=== PATIENT | female | born 1945 | race Caucasian/White ===

== ENCOUNTER 2017-09-24 17:27 | Observation (INO) | payer MEDICARE, SELFPAY ==
[2017-09-24] VITALS (10 sets, daily range): BP systolic 159–194; BP diastolic 90–112; PULSE 80–108; RESP 12–18; TEMP 36.1–36.3; O2SAT 93–99; BMI 32.2; BMI 28.7
--- NOTE | 2017-09-24 17:38 | EKG12_ITS ---
Test Reason : CP Blood Pressure : / mmHG Vent. Rate : 100 BPM Atrial Rate : 100 BPM P-R Int : 194 ms QRS Dur : 078 ms QT Int : 338 ms P-R-T Axes : 043 046 029 degrees QTc Int : 436 ms Normal sinus rhythm Nonspecific ST abnormality Abnormal ECG Confirmed by CHARITY SALCIDO MD ([id number]), editor house organ FRANK VALDES ([id number]) on 09/26/2017 2:11:43 PM Referred By: CHHAYA Confirmed By:CHARITY SALCIDO MD
--- NOTE | 2017-09-24 17:40 | RAD_ITS ---
STUDY: X-RAY CHEST REASON FOR EXAM: Female, 72 years old. Chest pain TECHNIQUE: Single AP portable view of the chest. COMPARISON: None. FINDINGS: property assessment monitor leads are present. The lungs are clear and expanded. There is no demonstrated pleural abnormality. Normal size heart. Normal mediastinum and vianney. Normal visualized pulmonary arteries. There are calcified plaques of the aortic arch. Normal visualized thoracic spine. Normal visualized ribs, clavicles, and shoulders. There is no demonstrated abnormality of the visualized soft tissue structures of the upper abdomen. RAD/Chest 1 View (Portable) IMPRESSION: Calcified plaques of the aortic arch. No acute cardiopulmonary disease process is seen. Electronically Signed: Gabriel Alvarado MD at 18:28 EDT , Service support ,
[2017-09-24 18:00] LABS: Absolute Lymphocyte Count 2.98 X10^3/ul (0.83-4.51); Basophil# 0.02 X10^3/uL; Basophil% 0.3 % (0-1); Eosinophil# 0.12 X10^3/uL; Eosinophils% 1.8 % (0-5); Hematocrit 40.5 % (37-47); Hemoglobin 13.1 g/dl (12.0-15.0); Lymphocyte # 2.98 X10^3/ul (4.0); Lymphocyte % 45.8 % (19-41); Mean Corp Hgb Conc 32.3 g/gl (32-36); Mean Corpuscular Hgb 31.1 pg (27.0-32.0); Mean Corpuscular Volume 96.2 fL (81-99); Mean Platelet Vol. 8.9 fl (6.2-12.0); Monocyte% 6.1 % (0-10); Neutrophil # 2.98 X10^3/uL (2.7-7.7); Neutrophil % 45.8 % (47-70); Platelet Count 284 K/mm3 (150-450); RBC Distribution Width CV 12.5 % (11.6-14.6); RBC Distribution Width SD 43.2 fl (35.1-43.9); Red Blood Count 4.21 M/mm3 (4.2-5.4); White Blood Count 6.5 K/mm3 (4.4-11.0)
[2017-09-24] MEDS: Morphine 4 MG/ML Syringe IV (18:01)
[2017-09-24] MEDS: Ondansetron 4 MG/2 ML Vial IV (18:02)
[2017-09-24 18:05] LABS: POSITIVE COUNT NO; POSITIVE DIFFERENTIAL NO; POSITIVE MORPHOLOGY NO
[2017-09-24 18:08] LABS: Anion Gap 11 (5-15); BUN 24 mg/dL (7-18); BUN/Creat Ratio 16.7 RATIO (10-20); Calcium,Total 9.3 mg/dL (8.5-10.1); Chloride 104 mmol/L (98-107); Creatinine, Serum 1.44 mg/dL (0.55-1.02); EST Glomerular Filtration Rate 38 mL/min (>60); Est Glom Filt Rate - Afr Amer 46 mL/min (>60); Estimated Creatinine Clearance 34.03 ml/min; Glucose 129 mg/dL (74-106); Potassium 3.7 mmol/L (3.5-5.1); Sodium Level 140 mmol/L (136-145)
[2017-09-24 18:12] LABS: D-Dimer Quantitative (DVT/PE) 0.47 FEU/ug/m (0.27-0.49)
--- NOTE | 2017-09-24 18:24 | EKG12_ITS ---
Test Reason : REPEAT Blood Pressure : / mmHG Vent. Rate : 075 BPM Atrial Rate : 075 BPM P-R Int : 174 ms QRS Dur : 080 ms QT Int : 376 ms P-R-T Axes : 044 041 039 degrees QTc Int : 419 ms Normal sinus rhythm Normal ECG Confirmed by CHARITY SALCIDO MD ([id number]), proposal editor FRANK VALDES ([id number]) on 09/26/2017 2:35:26 PM Referred By: TEE Confirmed By:CHARITY SALCIDO MD
--- NOTE | 2017-09-24 18:44 | CT_ITS ---
STUDY: CTA CHEST REASON FOR EXAM: Female, 72 years old. Chest pain RADIATION DOSAGE (If Supplied By Facility): CTDIvol = ( 14.83 ) mGy, DLP = ( 599.78 ) mGycm TECHNIQUE: The examination was performed with the intravenous administration of 100ML ml of Isovue 370 contrast material. Post-processing of the angiographic images was performed, with multiplanar reformation and 3D reconstruction. Individualized dose optimization techniques were used for this CT. COMPARISON: None. FINDINGS: Normal enhancement of the main pulmonary artery and right and left pulmonary arteries. Normal enhancement of the bilateral peripheral pulmonary arteries. There is no demonstrated pulmonary embolism. Normal thoracic aorta and visualized great vessels. There is no demonstrated aortic dissection. Normal heart and pericardium. Normal mediastinum. Normal hilar regions. Normal visualized trachea and bronchi. There is a 7 mm pleural-based nodule of the superior segment of the right lower lobe, image 44 series 2. Normal pleura. Normal chest wall structures. There are degenerative changes of thoracic spine. There is a small calcified gallstone in the gallbladder neck. CT/CTA Chest W/WO Contrast IMPRESSION: Normal CTA chest examination, without a demonstrated pulmonary embolism or arterial dissection. 7 mm pleural-based nodule of the superior segment of the right lower lobe. Small calcified gallstone in the gallbladder neck. Electronically Signed: Gabriel Alvarado MD at 19:49 EDT , Service support ,
[2017-09-24] MEDS: HYDROmorphone 1 MG/ML Syringe 0.5 MG IV ×4 (18:54→21:11)
[2017-09-24 20:23] LABS: AST(SGOT) 30 U/L (15-37); Alanine Aminotransfer ALT/SGPT 34 U/L (13-56); Albumin, Serum 4.2 g/dL (3.2-5.0); Alkaline Phosphatase 147 U/L (45-117); Bilirubin, Direct 0.11 mg/dL (0.00-0.30); Globulin 4.7 g/dL (2.2-4.2); Lipase 154 U/L (73-393); Protein, Total 8.9 g/dL (6.4-8.2)
--- NOTE | 2017-09-24 20:57 | ED.VISSUMM ---
- ER Visit Summary Date of Service: 09/24/17 Chief Complaint: Acute midsternal severe chest pain History of Present Illness: The patient is a 72 F who presents with acute midsternal chest pain that started 30-60 minutes prior to presentation. She denies history of coronary disease. She denies history of PE or DVT. She did travel from [facility] and is made several trips in the last 24 hours to visit family members and ill family members at multiple different hospitals. When this occurred she was celebrating her grandsons achievement of [employer]. She is a non-smoker. Eyes any intolerance to greasy or fried foods. She denies headache. She denies visual, ocular or auditory symptoms. Denies jaw pain or neck pain. She denies shortness of breath, difficulty breathing, diaphoresis or nausea. She denies any leg pain, swelling or discoloration. She denies any hematemesis, melena hematochezia. She does have history of mild renal insufficiency and hypertension. There is also history of hypothyroidism based on medication. Physical Examination: Vital signs were remarkable for a blood pressure of 193/109. She appears uncomfortable holding her in the middle of her chest. Head is atraumatic normocephalic. Pupils are equal round reactive. Extraocular muscles are intact. TMs are pearly white with landmarks noted. Nares patent with no drainage. Posterior pharynx without erythema or exudate. Uvula is midline. There is no dysphonia or dysphasia. Trachea is midline. There is no stridor with auscultation of the neck. Heart is regular without murmur, gallop or rub. S1 and S2 are normal. Lungs are clear to auscultation with good movement of air bilaterally. There is no reproducible abdominal pain or chest pain bowel sounds are present normal. There is no palpable stone mass or abdominal bruit. She has a negative Cotton sign. There is no CVA tenderness noted. There is no asymmetry, swelling, discoloration, leg vein distention, palpable cords or tenderness along the distribution of the deep venous system. Patient is alert and oriented ?3. Motor is 5 over 5. Sensory is intact. DTRs are symmetric with no clonus or Babinski sign. Cranial 2 through 12 are intact. Cerebellar testing is normal. Test Results: EKG #1 normal sinus rhythm rate of 84 and normal. Repeat EKG was obtained because of increased pain and is normal. CBC normal. BUN is 24 the creatinine 1.44 and glucose 129. Alk phos is 147. Troponin less than 0.02 d-dimer is at 0.47. However with the abrupt onset of this pain an aortic dissection may have a falsely normal d-dimer. CTA for dissection reveals a 7 mm gallstone in the neck of the gallbladder. Emergency Department Course and Treatment: To evaluate chest pain EKG, chest x-ray and appropriate blood work was obtained to evaluate Harpreet versus pulmonary versus GI etiology. Because of the elevated blood pressure and complaining of pain only in the middle of her chest without food intolerance concerned this may represent aortic dissection. After reviewing results of CTA of the chest hepatic and lipase were ordered. Patient is received 4 mg of morphine and 4 separate doses of Dilaudid and is still in significant discomfort. Dr. Chadwick Tolentino who is on for surgery was contacted and will see patient Treatment Plan: Ultrasound was not ordered since she ate 3-4 hours ago and would result in a suboptimal test. Disposition: Pending evaluation by Dr. Tolentino patient will be admitted either to surgery or medicine service. Dr. Tolentino is seeing patient. He would like her cleared from a medical/cardiac standpoint and an ultrasound in the morning. Impression: Chest pain Cholelithiasis History of hypertension History hypothyroidism This note was generated with [employer] dictation software. It may contain incorrect words, spelling, and punctuation that were not noted in review of the chart prior to signing ED Disposition - Plan for ED Patient: Chief Complaint: Chest Pain Referrals: Care Physician,No Primary [Primary Care Provider] -
--- NOTE | 2017-09-24 21:02 | ED.DCSUM_ITS ---
- ER Visit Summary Date of Service: 09/24/17 Chief Complaint: Acute midsternal severe chest pain History of Present Illness: The patient is a 72 F who presents with acute midsternal chest pain that started 30-60 minutes prior to presentation. She denies history of coronary disease. She denies history of PE or DVT. She did travel from [facility] and is made several trips in the last 24 hours to visit family members and ill family members at multiple different hospitals. When this occurred she was celebrating her grandsons achievement of [employer]. She is a non-smoker. Eyes any intolerance to greasy or fried foods. She denies headache. She denies visual, ocular or auditory symptoms. Denies jaw pain or neck pain. She denies shortness of breath, difficulty breathing, diaphoresis or nausea. She denies any leg pain, swelling or discoloration. She denies any hematemesis, melena hematochezia. She does have history of mild renal insufficiency and hypertension. There is also history of hypothyroidism based on medication. Physical Examination: Vital signs were remarkable for a blood pressure of 193/ 109. She appears uncomfortable holding her in the middle of her chest. Head is atraumatic normocephalic. Pupils are equal round reactive. Extraocular muscles are intact. TMs are pearly white with landmarks noted. Nares patent with no drainage. Posterior pharynx without erythema or exudate. Uvula is midline. There is no dysphonia or dysphasia. Trachea is midline. There is no stridor with auscultation of the neck. Heart is regular without murmur, gallop or rub. S1 and S2 are normal. Lungs are clear to auscultation with good movement of air bilaterally. There is no reproducible abdominal pain or chest pain bowel sounds are present normal. There is no palpable stone mass or abdominal bruit. She has a negative Cotton sign. There is no CVA tenderness noted. There is no asymmetry, swelling, discoloration, leg vein distention, palpable cords or tenderness along the distribution of the deep venous system. Patient is alert and oriented ?3. Motor is 5 over 5. Sensory is intact. DTRs are symmetric with no clonus or Babinski sign. Cranial 2 through 12 are intact. Cerebellar testing is normal. Test Results: EKG #1 normal sinus rhythm rate of 84 and normal. Repeat EKG was obtained because of increased pain and is normal. CBC normal. BUN is 24 the creatinine 1.44 and glucose 129. Alk phos is 147. Troponin less than 0.02 d- dimer is at 0.47. However with the abrupt onset of this pain an aortic dissection may have a falsely normal d-dimer. CTA for dissection reveals a 7 mm gallstone in the neck of the gallbladder. Emergency Department Course and Treatment: To evaluate chest pain EKG, chest x- ray and appropriate blood work was obtained to evaluate Harpreet versus pulmonary versus GI etiology. Because of the elevated blood pressure and complaining of pain only in the middle of her chest without food intolerance concerned this may represent aortic dissection. After reviewing results of CTA of the chest hepatic and lipase were ordered. Patient is received 4 mg of morphine and 4 separate doses of Dilaudid and is still in significant discomfort. Dr. Chadwick Tolentino who is on for surgery was contacted and will see patient Treatment Plan: Ultrasound was not ordered since she ate 3-4 hours ago and would result in a suboptimal test. Disposition: Pending evaluation by Dr. Tolentino patient will be admitted either to surgery or medicine service. Dr. Tolentino is seeing patient. He would like her cleared from a medical/cardiac standpoint and an ultrasound in the morning. Impression: Chest pain Cholelithiasis History of hypertension History hypothyroidism This note was generated with [employer] dictation software. It may contain incorrect words, spelling, and punctuation that were not noted in review of the chart prior to signing ED Disposition - Plan for ED Patient: Chief Complaint: Chest Pain Referrals: Care Physician,No Primary [Primary Care Provider] -
--- NOTE | 2017-09-24 21:42 | PCM.CONS.GEN ---
Problem List (1) Cholelithiasis Status: Acute Qualifiers: Cholelithiasis location: gallbladder Cholecystitis presence: without cholecystitis Biliary obstruction: without biliary obstruction Qualified Code(s): K80.20 - Calculus of gallbladder without cholecystitis without obstruction (2) Chest pain Status: Acute Qualifiers: Chest pain type: unspecified Qualified Code(s): R07.9 - Chest pain, unspecified Reason for Consult Date of Consultation: 09/24/17 History of Present Illness: The patient is a 72 F who presents with acute midsternal chest pain that started 30-60 minutes prior to presentation. She denies history of coronary disease. She denies history of PE or DVT. She did travel from [facility] and is made several trips in the last 24 hours to visit family members and ill family members at multiple different hospitals. When this occurred she was celebrating her grandsons achievement of [employer]. She is a non-smoker. Eyes any intolerance to greasy or fried foods. She denies headache. She denies visual, ocular or auditory symptoms. Denies jaw pain or neck pain. She denies shortness of breath, difficulty breathing, diaphoresis or nausea. She denies any leg pain, swelling or discoloration. She denies any hematemesis, melena hematochezia. She does have history of mild renal insufficiency and hypertension. There is also history of hypothyroidism based on medication. I questioned her extensively about where her pain was located. She is having no abdominal complaints whatsoever. Her pain is midsternal going up into her neck and down into her left arm. She is been given numerous bouts of IV narcotics which really have not touched her pain significantly. She had a CTA of her chest which showed an isolated gallstone. My review of the CAT scan did not show any pericholecystic fluid. There did not appear to be any distention of the gallbladder. There did not appear to be any thickening of the wall on the CAT scan albeit it is difficult to see that on a CAT scan. 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 Denies: Palpitations Respiratory: Denies: Cough, Hemoptysis, Shortness of breath at rest, Shortness of breath upon exertion, Wheezing Gastrointestinal: Denies: Abdominal Pain, Constipation, Diarrhea, Hematemesis, Nausea, Melena, Vomiting Genitourinary: Denies: Dysuria, Frequency, Hematuria, Urgency Musculoskeletal: Reports: Arm Pain - She has pain extending into the neck and going down the left arm. Neurological: Reports: Headaches. Denies: Change in Speech, Confusion, Numbness, Tingling, Seizures Psychiatric: Denies: Anxiety, Depression Endocrine: Denies: Heat/ Cold Intolerance, Polydipsia, Polyuria Hematologic/ Lymphatic: Denies: Adenopathy, Easy Bruising Patient Problems: Active and Suspected Problems Cholelithiasis (Acute) Chest pain (Acute) - Physical Exam General: Alert, Oriented x3 HEENT: Atraumatic, PERRLA, EOMI, Normocephalic Neck: Supple, No JVD Lungs: Clear to auscultation Cardiovascular: Regular rate, Regular Rhythm, No murmurs Abdomen: Bowel Sounds Present, Soft, Non Tender, Non-Distended Extremities: No clubbing, No cyanosis, No edema Psych/Mental Status: Normal Affect, Appropriate Vital Signs Temp Pulse Resp BP Pulse Ox 97.4 F L 85 16 170/106 H 97 09/24/17 17:34 09/24/17 21:35 09/24/17 21:35 09/24/17 21:35 09/24/17 21:35 Oxygen Flow Rate (L/min) 2 Oxygen Delivery Method Room Air Weight: 199 lb 11.821 oz Body Mass Index (BMI) 32.2 Laboratory Tests Past 24 Hrs 09/24/17 09/24/17 09/24/17 17:30 17:30 17:30 WBC 6.5 RBC 4.21 Hgb 13.1 Hct 40.5 MCV 96.2 MCH 31.1 MCHC 32.3 RDW 12.5 RDW Differential 43.2 Plt Count 284 MPV 8.9 Immature Gran % (Auto) 0.200 Neut % (Auto) 45.8 L Lymph % (Auto) 45.8 H Crane % (Auto) 6.1 Eos % (Auto) 1.8 Baso % (Auto) 0.3 Absolute Neuts (auto) 3.0 Absolute Lymphs (auto) 2.98 Total Counted Not Reportable D-Dimer Quant (PE/DVT) 0.47 Sodium 140 Potassium 3.7 Chloride 104 Carbon Dioxide 25.0 Anion Gap 11 BUN 24 H Creatinine 1.44 H Estim Creat Clear Calc 34.03 Est GFR (MDRD) Af Amer 46 L Est GFR (MDRD) Non-Af 38 L BUN/Creatinine Ratio 16.7 Glucose 129 H Calcium 9.3 Total Bilirubin Direct Bilirubin AST ALT Alkaline Phosphatase Troponin I < 0.02 Total Protein Albumin Globulin Lipase 09/24/17 20:02 WBC RBC Hgb Hct MCV MCH MCHC RDW RDW Differential Plt Count MPV Immature Gran % (Auto) Neut % (Auto) Lymph % (Auto) Crane % (Auto) Eos % (Auto) Baso % (Auto) Absolute Neuts (auto) Absolute Lymphs (auto) Total Counted D-Dimer Quant (PE/DVT) Sodium Potassium Chloride Carbon Dioxide Anion Gap BUN Creatinine Estim Creat Clear Calc Est GFR (MDRD) Af Amer Est GFR (MDRD) Non-Af BUN/Creatinine Ratio Glucose Calcium Total Bilirubin 0.40 Direct Bilirubin 0.11 AST 30 ALT 34 Alkaline Phosphatase 147 H Troponin I Total Protein 8.9 H Albumin 4.2 Globulin 4.7 H Lipase 154 Assessment/Plan Active and Suspected Problems Cholelithiasis (Acute) Chest pain (Acute) Although she has cholelithiasis I really do not think her pain is being derived from this. She has absolutely no abdominal pain on palpation and she is not complaining of any abdominal pain. Her liver function tests are within normal limits other than her alkaline phosphatase being elevated. I think it is best that medicine bring her in and rule her out from a cardiac and a chest standpoint and obtain a gallbladder ultrasound in the morning as well as repeating liver function tests then. At the present time I do not have a strong indication to take her to surgery to remove her gallbladder and think that I am going to make this discomfort go away.
--- NOTE | 2017-09-24 21:44 | HP.PCM_ITS ---
History of Present Illness Date of Admission: 09/24/17 Chief Complaint: Chest pain The patient is a 72 year old F with history of hypertension hypothyroidism came to ER with sudden onset of chest pain while having dinner at 5 PM. Patient is visiting her relative in [place] from [place]. She complained of chest pain left-sided intensity /, with radiation to left side of her neck and left upper extremity. She denies associated symptoms of shortness of breath, diaphoresis, palpitation, near syncope or syncope. [] In ED, EKG shows normal sinus rhythm at [address]-T changes. Furthermore she had CT angiogram of chest was negative for PE but showed small calcified gallstone in GB neck. Past Medical History Allergies No Known Allergies Allergy (Verified 09/24/17 17:27) Home Medications: Ambulatory Orders Medication Instructions Recorded Levothyroxine [Synthroid] 75 mcg PO DAILY 09/24/17 Olmesartan Medoxomil [Benicar] 20 mg PO DAILY 09/24/17 Smoking Status: Former smoker - *Family History Paternal History Items: No pertinent history Review of Systems Constitutional: Denies: Chills, Fever, Weight Change HEENT: Denies: Head Aches, Sinus Congestion, Sinus Drainage Cardiovascular: Reports: Chest Pain. Denies: Palpitations Respiratory: Denies: Cough, Shortness of breath at rest, Sputum production Gastrointestinal: Denies: Abdominal Pain, Nausea, Vomiting Genitourinary: Denies: Dysuria Musculoskeletal: Denies: Joint Pain, Joint Tenderness Skin: Denies: Rash, Wounds Neurological: Denies: Numbness, Tingling, Focal weakness Psychiatric: Denies: Anxiety, Depression, Homicidal Ideations, Suicidal Ideations Hematologic/ Lymphatic: Denies: Easy Bruising, Easy Bleeding VTE Information - Inpt Only VTE Present on Admission: No VTE Mechan Device Prophylaxis: SCD's VTE Pharm Prophylaxis ordered?: Yes - Physical Exam General: Alert, Oriented x3, Cooperative HEENT: Atraumatic, PERRLA, EOMI, Normocephalic Neck: Supple, No JVD, Negative Carotid Bruits Lungs: Clear to auscultation, Normal air movement Cardiovascular: Regular rate, Regular Rhythm, Normal S1, Normal S2, No murmurs Abdomen: Bowel Sounds Present, Soft, Non Tender, Non-Distended Extremities: No edema, Capillary Refill Less than 3 Seconds Skin: No rashes, No breakdown Musculoskeletal: No Tenderness to Palpation of Joints or Extremities Neurological: Cranial nerves II-XII grossly intact Psych/Mental Status: Normal Affect, Appropriate Vital Signs Temp Pulse Resp BP Pulse Ox 97.4 F L 85 16 170/106 H 97 09/24/17 17:34 09/24/17 21:35 09/24/17 21:35 09/24/17 21:35 09/24/17 21:35 Oxygen Flow Rate (L/min) 2 Oxygen Delivery Method Room Air Weight: 199 lb 11.821 oz Body Mass Index (BMI) 32.2 Laboratory Tests Past 24 Hrs 09/24/17 09/24/17 09/24/17 17:30 17:30 17:30 WBC 6.5 RBC 4.21 Hgb 13.1 Hct 40.5 MCV 96.2 MCH 31.1 MCHC 32.3 RDW 12.5 RDW Differential 43.2 Plt Count 284 MPV 8.9 Immature Gran % (Auto) 0.200 Neut % (Auto) 45.8 L Lymph % (Auto) 45.8 H Cottle % (Auto) 6.1 Eos % (Auto) 1.8 Baso % (Auto) 0.3 Absolute Neuts (auto) 3.0 Absolute Lymphs (auto) 2.98 Total Counted Not Reportable D-Dimer Quant (PE/DVT) 0.47 Sodium 140 Potassium 3.7 Chloride 104 Carbon Dioxide 25.0 Anion Gap 11 BUN 24 H Creatinine 1.44 H Estim Creat Clear Calc 34.03 Est GFR (MDRD) Af Amer 46 L Est GFR (MDRD) Non-Af 38 L BUN/Creatinine Ratio 16.7 Glucose 129 H Calcium 9.3 Total Bilirubin Direct Bilirubin AST ALT Alkaline Phosphatase Troponin I < 0.02 Total Protein Albumin Globulin Lipase 09/24/17 20:02 WBC RBC Hgb Hct MCV MCH MCHC RDW RDW Differential Plt Count MPV Immature Gran % (Auto) Neut % (Auto) Lymph % (Auto) Cottle % (Auto) Eos % (Auto) Baso % (Auto) Absolute Neuts (auto) Absolute Lymphs (auto) Total Counted D-Dimer Quant (PE/DVT) Sodium Potassium Chloride Carbon Dioxide Anion Gap BUN Creatinine Estim Creat Clear Calc Est GFR (MDRD) Af Amer Est GFR (MDRD) Non-Af BUN/Creatinine Ratio Glucose Calcium Total Bilirubin 0.40 Direct Bilirubin 0.11 AST 30 ALT 34 Alkaline Phosphatase 147 H Troponin I Total Protein 8.9 H Albumin 4.2 Globulin 4.7 H Lipase 154 Assessment/Plan The patient is a 72 year old F with history of hypertension hypothyroidism came to ER with sudden onset of chest pain while having dinner at 5 PM. Patient is visiting her relative in [place] from [place]. She complained of chest pain, persistent, left-sided intensity 9/10, with radiation to left side of her neck and left upper extremity. She denies associated symptoms of shortness of breath, diaphoresis, palpitation, near syncope or syncope. [] In ED, EKG shows normal sinus rhythm at [address]-T changes. Furthermore she had CT angiogram of chest was negative for PE but showed small calcified gallstone in GB neck. 1. Atypical chest pain: Does not seem to be unstable angina: Patient does not have history of AL or coronary artery disease or other cardiac disease except hypertension. She denies history of esophageal disease including GERD/ dysphagia or hiatus hernia. Patient is being admitted in PCU. On ACS protocol with serial cardiac enzymes and if negative treadmill nuclear stress test tomorrow morning. Patient still has chest pain even after 4 doses of Dilaudid 0.5 mg and morphine 4 mg. 2. Hypertension: In the ER blood pressure elevated. She takes Benicar at night. Hydralazine 10 mg IV every 4 hourly as needed systolic blood pressure more than 180 mmHg. Mild increase in creatinine with BUN most rarely prerenal azotemia: Creatinine is 1.44 and BUN 24. Does not have any previous labs to compare. IV fluid normal saline enema per hour 3. Hypothyroidism: TSH and free T4 tomorrow morning. Continue Synthroid. DVT prophylaxis: On heparin 5000 units units subcutaneous twice daily and bilateral SCDs. Laboratory Results 09/24/17 17:30: WBC 6.5, RBC 4.21, Hgb 13.1, Hct 40.5, MCV 96.2, MCH 31.1, MCHC 32.3, RDW 12.5, RDW Differential 43.2, Plt Count 284, MPV 8.9, Immature Gran % ( Auto) 0.200, Neut % (Auto) 45.8 L, Lymph % (Auto) 45.8 H, Cottle % (Auto) 6.1, Eos % (Auto) 1.8, Baso % (Auto) 0.3, Absolute Neuts (auto) 3.0, Absolute Lymphs (auto) 2.98, Total Counted Not Reportable 09/24/17 17:30: D-Dimer Quant (PE/DVT) 0.47 09/24/17 17:30: Sodium 140, Potassium 3.7, Chloride 104, Carbon Dioxide 25.0, Anion Gap 11, BUN 24 H, Creatinine 1.44 H, Estim Creat Clear Calc 34.03, Est GFR (MDRD) Af Amer 46 L, Est GFR (MDRD) Non-Af 38 L, BUN/Creatinine Ratio 16.7, Glucose 129 H, Calcium 9.3, Troponin I < 0.02 09/24/17 20:02: Total Bilirubin 0.40, Direct Bilirubin 0.11, AST 30, ALT 34, Alkaline Phosphatase 147 H, Total Protein 8.9 H, Albumin 4.2, Globulin 4.7 H, Lipase 154 Code Visit OBSV E&M: 79242 Initial observation care L3
[2017-09-24] MEDS: Heparin Injection (Vial) 5,000 UNIT/ML VIAL 5000 UNIT SC (22:54)
[2017-09-24] MEDS: Aspirin 81 MG TAB.CHEW 324 MG PO (22:54)
[2017-09-24] MEDS: oxyCODONE CR 15 MG Tablet PO (22:55)
[2017-09-24] MEDS: Metoprolol Tartrate 25 MG Tablet PO (22:55)
[2017-09-24] MEDS: Atorvastatin Calcium 40 MG Tablet PO (22:55)
[2017-09-24] MEDS: 0.9% Normal Saline 1,000 ML 100 ML IV (22:56)
[2017-09-24 23:05] LABS: Magnesium 1.9 mg/dL (1.6-2.6)
[2017-09-25 01:55] VITALS: BP 138/78; PULSE 76; RESP 14; TEMP 36.3; O2SAT 94
[2017-09-25] MEDS: Morphine 2 MG/ML Syringe IV ×2 (02:02→05:19)
[2017-09-25] MEDS: 0.9% NaCl Peripheral Flush Adult/Peds IV (02:03)
[2017-09-25 03:11] VITALS: PULSE 84
[2017-09-25 05:15] VITALS: BP 140/81; PULSE 80; RESP 14; TEMP 36.6; O2SAT 92
[2017-09-25] MEDS: Losartan Potassium 50 MG Tablet PO (05:18)
[2017-09-25] MEDS: Levothyroxine 75 MCG Tablet PO (05:18)
[2017-09-25] MEDS: Aspirin E.C. 81 MG Tablet PO (05:18)
[2017-09-25 05:47] LABS: Absolute Lymphocyte Count 1.22 X10^3/ul (0.83-4.51); Absolute Neutrophil Count 7.4 X10^3/uL (2.0-7.7); Basophil# 0.01 X10^3/uL; Basophil% 0.1 % (0-1); Eosinophil# 0.01 X10^3/uL; Eosinophils% 0.1 % (0-5); Hematocrit 38.3 % (37-47); Hemoglobin 12.4 g/dl (12.0-15.0); Lymphocyte # 1.22 X10^3/ul (4.0); Lymphocyte % 13.3 % (19-41); Mean Corp Hgb Conc 32.4 g/gl (32-36); Mean Corpuscular Hgb 31.2 pg (27.0-32.0); Mean Corpuscular Volume 96.5 fL (81-99); Mean Platelet Vol. 8.8 fl (6.2-12.0); Monocyte# 0.53 X10^3/uL; Monocyte% 5.8 % (0-10); Neutrophil # 7.35 X10^3/uL (2.7-7.7); Neutrophil % 80.5 % (47-70); Platelet Count 291 K/mm3 (150-450); RBC Distribution Width CV 12.2 % (11.6-14.6); RBC Distribution Width SD 41.6 fl (35.1-43.9); Red Blood Count 3.97 M/mm3 (4.2-5.4); White Blood Count 9.1 K/mm3 (4.4-11.0)
[2017-09-25 05:52] LABS: POSITIVE COUNT NO; POSITIVE DIFFERENTIAL NO; POSITIVE MORPHOLOGY NO
[2017-09-25 05:53] LABS: Prothrombin Time (Protime)PT. 13.6 SECONDS (11.7-14.9)
[2017-09-25 05:54] LABS: Partial Thromboplast Time 34.6 Seconds (24.1-36.2)
--- NOTE | 2017-09-25 05:55 | EKG12_ITS ---
Test Reason : AM EKG Blood Pressure : / mmHG Vent. Rate : 073 BPM Atrial Rate : 073 BPM P-R Int : 186 ms QRS Dur : 078 ms QT Int : 390 ms P-R-T Axes : 050 057 036 degrees QTc Int : 429 ms Normal sinus rhythm Normal ECG When compared with ECG of 20-NOV-2000 05:50, No significant change was found Confirmed by LOLY LOW, CHARITY ([id number]), non linear editor FRANK VALDES ([id number]) on 09/29/2017 3:45:55 PM Referred By: RAKESH Confirmed By:CHARITY SALCIDO MD
--- NOTE | 2017-09-25 05:55 | US_ITS ---
STUDY: ABDOMINAL ULTRASOUND - RIGHT UPPER QUADRANT REASON FOR VISIT: Female, 72 years old. Right upper quadrant pain, nausea TECHNIQUE: Ultrasound evaluation of the right upper quadrant was performed with real-time and static soto-scale imaging. TECHNICAL QUALITY: Limited. Examination limited by bowel gas. COMPARISON: None. FINDINGS: Liver: The liver measures 13.4 cm. There is normal echogenicity of the liver. The bile ducts are within normal limits. There is hepatic color flow. The direction of portal flow is hepatopetal. There is no demonstrated mass lesion. Gallbladder: Normal distended gallbladder. The gallbladder wall measures 3 mm. There is a negative sonographic Cotton's sign. There is no pericholecystic fluid. There is a solitary echogenic gallstone within the gallbladder. Common Bile Duct (C.B.D.): The common bile duct measures 3 mm. Pancreas: Visualized pancreas is sonographically normal Right Kidney: Normal size of the right kidney. The right kidney measures 8.7 x 3.7 x 4.4 cm. There is thinning of the renal cortex. The right cortex measures 0.9 cm. There is no demonstrated renal mass or cyst. There is no right hydronephrosis. US/Abdomen Limited IMPRESSION: Cholelithiasis, no sonographic evidence of acute cholecystitis Cortical thinning in the right kidney, likely age-related, no obstruction noted. Electronically Signed: Leonardo Morton MD at 11:52 EDT , Service support ,
[2017-09-25 06:19] LABS: ALB/GLOB Ratio 0.8 RATIO (0.9-2.4); AST(SGOT) 26 U/L (15-37); Alanine Aminotransfer ALT/SGPT 33 U/L (13-56); Albumin, Serum 3.5 g/dL (3.2-5.0); Alkaline Phosphatase 111 U/L (45-117); Anion Gap 6 (5-15); BUN 16 mg/dL (7-18); BUN/Creat Ratio 13.8 RATIO (10-20); Calcium,Total 8.2 mg/dL (8.5-10.1); Chloride 103 mmol/L (98-107); Cholesterol 167 mg/dL (200); Creatinine, Serum 1.16 mg/dL (0.55-1.02); EST Glomerular Filtration Rate 49 mL/min (>60); Est Glom Filt Rate - Afr Amer 59 mL/min (>60); Estimated Creatinine Clearance 43.88 ml/min; Globulin 4.4 g/dL (2.2-4.2); Glucose 111 mg/dL (74-106); High Density Lipoprotein 67 mg/dL; Potassium 4.1 mmol/L (3.5-5.1); Protein, Total 7.9 g/dL (6.4-8.2); Sodium Level 138 mmol/L (136-145); T4 Free Direct 1.12 ng/dL (0.76-1.46); Thyroid Stim Hormone (TSH) 1.33 uIU/mL (0.358-3.74); Triglycerides 117 mg/dL; Very Low Density Lipoprotein 23 mg/dL (5-40)
[2017-09-25 07:29] VITALS: PULSE 83
--- NOTE | 2017-09-25 11:16 | STRESSREP_ITS ---
Stress Test Report Exercise myocardial perfusion stress test. 72-year-old lady with a history of chest pain. Stress protocol: Resting EKG demonstrates normal sinus rhythm with rate of 75 bpm normal intervals and noted resting blood pressure is 138/70 mmHg. The patient exercised according to regular Alfred protocol total duration of 3 minutes completing stage I of the Alfred protocol. The maximum heart rate attained was 130 bpm which was 86% of maximum predicted heart rate the maximum workload attained was 4.6 metabolic equivalents. At rest there were no ST or T-wave changes noted suggest ischemia peak exercise upsloping ST changes only were noted with no meet the criteria for ischemia. The resting blood pressure is 138 /70 with a fine peak blood pressure of 172/78 rate pressure product was 22,300. Myocardial perfusion protocol. 11.3 mCi of technetium 99m sestamibi was injected at rest. The patient exercised according to regular Alfred protocol for 3 minutes attaining 4.6 metabolic equivalents at peak exercise 33.7 mCi of technetium 99m sestamibi was injected stress images were obtained stress and rest images were reconstructed and compared in the short axis vertical long and horizontal long axis. Gated images were also obtained pre- Perfusion SPECT analysis: Review of the stress images demonstrate normal cardiac silhouette size. There is uniform uptake of tracer noted in all areas of the myocardium with no areas of reversibility noted suggest ischemia. No clinical angina is noted. No previous infarct is noted. Gated SPECT analysis: The gated ejection fraction is noted to be 86%. Conclusion: Normal exercise myocardial perfusion stress test. Preserved ejection fraction. Low workload attained.
[2017-09-25 11:58] VITALS: BP 116/61; PULSE 77; RESP 16; TEMP 36.7; O2SAT 94
--- NOTE | 2017-09-25 12:10 | PCM.DC ---
- Discharge Diagnoses Current Active Problems: Current Active and Chronic Problems Cholelithiasis (Acute) Chest pain (Acute) Chest pain (Acute) You will use the following diet at home:: No restrictions Discharge Activity: Return to Normal Activity Instructions: ED Chest Pain NonCardiac Allergies/Adverse Reactions: Allergies No Known Allergies Allergy (Verified 09/24/17 17:27) Medications to take at Discharge Levothyroxine [Synthroid] 75 mcg PO DAILY 09/24/17 Olmesartan Medoxomil [Benicar] 20 mg PO DAILY 09/24/17 Aspirin E.C. [Ecotrin] 81 mg PO DAILY@0800 tablet 09/25/17 Primary Care Physician: Care Physician,No Primary [Primary Care Provider] - Within 2 Weeks Proposed Discharge Date: 09/25/17
--- NOTE | 2017-09-25 12:11 | PCM.DC.SUM ---
Discharge Date and Diagnosis Date of Admission: 09/24/17 Date of Discharge: 09/25/17 - Primary Discharge Diagnosis Active and Suspected Problems Cholelithiasis (Acute) Chest pain (Acute) Chest pain (Acute) Hospital Course and Treatment Imaging Results: 09/25/17 05:55 Nuclear Stress Test - Treadmil [NM] AM (NON MEDS) Abdomen Limited [US] AM (NON MEDS) Summary of Care Provided: The patient is a 72 year old F [place] family in [place], she has past medical history of hypertension hypothyroidism came to ED with sudden onset of chest pain while having dinner . Was placed in the progressive care unit and underwent rule out of acute coronary syndrome with negative cardiac enzymes she did underwent a stress test and that was negative for ischemia. As part of her workup in the emergency room she underwent a CTA of the chest and it showed PE butit also showed cholelithiasis. Surgeon was consulted and felt that this was asymptomatic any intervention at this time, the patient was recommended to follow-up with her primary care physician. She was discharged from the hospital symptom-free. Physical exam by the time of discharge; vital signs were stable. He was alert and oriented to time place and person. He did not appear to be any form of distress. S1 and S2 heard no murmur or gallop Lung exam was clear to auscultation with no adventitious sounds. Abdomen was soft nontender with normal bowel sounds. extremity exam did not reveal any edema, palpable pulses bilaterally. Neurologic exam was grossly intact. Discharge Activity: Return to Normal Activity Home Medications: Medications to take at Discharge Levothyroxine [Synthroid] 75 mcg PO DAILY 09/24/17 Olmesartan Medoxomil [Benicar] 20 mg PO DAILY 09/24/17 Aspirin E.C. [Ecotrin] 81 mg PO DAILY@0800 tablet 09/25/17 Primary Care Physician: Care Physician,No Primary [Primary Care Provider] - Within 2 Weeks Patient Instructions: ED Chest Pain NonCardiac Medical Necessity - Tobacco Use Smoking Status: Former smoker Meaningful Use Info Meaningful Use Diagnoses (Choose all that apply): None applicable Code Visit OBSV E&M: 82635 Observation care discharge
[2017-09-25 12:16] VITALS: PULSE 77
[2017-09-25] MEDS: Metoprolol Tartrate 25 MG Tablet PO (12:16)
--- NOTE | 2017-09-25 12:43 | PCM.PN.SRG ---
Patient Problems: Active and Suspected Problems Cholelithiasis (Acute) Chest pain (Acute) Chest pain (Acute) Subjective: Patient evaluated resting comfortably in bed. She denies abdominal discomfort. - Physical Exam General: Alert, Oriented x3, Cooperative Abdomen: Bowel Sounds Present, Soft, Non Tender, Non-Distended Vital Signs Temp Pulse Resp BP Pulse Ox 98.0 F 77 16 116/61 94 09/25/17 11:58 09/25/17 12:16 09/25/17 11:58 09/25/17 11:58 09/25/17 11:58 Oxygen Delivery Method Room Air Weight: 183 lb 6.793 oz Body Mass Index (BMI) 28.7 Intake and Output for Last 24 Hours 09/23/17 09/24/17 09/25/17 23:59 23:59 23:59 Intake Total 826 / 826 Balance 826 / 826 Laboratory Tests Past 24 Hrs 09/24/17 09/25/17 09/25/17 22:30 01:51 05:00 WBC RBC Hgb Hct MCV MCH MCHC RDW RDW Differential Plt Count MPV Immature Gran % (Auto) Neut % (Auto) Lymph % (Auto) Letcher % (Auto) Eos % (Auto) Baso % (Auto) Absolute Neuts (auto) Absolute Lymphs (auto) Total Counted PT INR APTT Sodium 138 Potassium 4.1 Chloride 103 Carbon Dioxide 29.0 Anion Gap 6 BUN 16 Creatinine 1.16 H Estim Creat Clear Calc 43.88 Est GFR (MDRD) Af Amer 59 L Est GFR (MDRD) Non-Af 49 L BUN/Creatinine Ratio 13.8 Glucose 111 H Calcium 8.2 L Magnesium 1.9 Total Bilirubin 0.30 AST 26 ALT 33 Alkaline Phosphatase 111 Troponin I < 0.02 < 0.02 Total Protein 7.9 Albumin 3.5 Globulin 4.4 H Albumin/Globulin Ratio 0.8 L Triglycerides 117 Cholesterol 167 LDL Cholesterol 77 VLDL Cholesterol 23 HDL Cholesterol 67 TSH 1.33 Free T4 1.12 09/25/17 09/25/17 09/25/17 05:00 05:00 08:00 WBC 9.1 RBC 3.97 L Hgb 12.4 Hct 38.3 MCV 96.5 MCH 31.2 MCHC 32.4 RDW 12.2 RDW Differential 41.6 Plt Count 291 MPV 8.8 Immature Gran % (Auto) 0.200 Neut % (Auto) 80.5 H Lymph % (Auto) 13.3 L Letcher % (Auto) 5.8 Eos % (Auto) 0.1 Baso % (Auto) 0.1 Absolute Neuts (auto) 7.4 Absolute Lymphs (auto) 1.22 Total Counted Not Reportable PT 13.6 INR 1.0 APTT 34.6 Sodium Potassium Chloride Carbon Dioxide Anion Gap BUN Creatinine Estim Creat Clear Calc Est GFR (MDRD) Af Amer Est GFR (MDRD) Non-Af BUN/Creatinine Ratio Glucose Calcium Magnesium Total Bilirubin AST ALT Alkaline Phosphatase Troponin I < 0.02 Total Protein Albumin Globulin Albumin/Globulin Ratio Triglycerides Cholesterol LDL Cholesterol VLDL Cholesterol HDL Cholesterol TSH Free T4 Medical Necessity - Tobacco Use Smoking Status: Former smoker Assessment/Plan Active and Suspected Problems Cholelithiasis (Acute) Chest pain (Acute) Chest pain (Acute) I am following this patient in conjunction with Dr. Tolentino Impression: Chest pain, unknown etiology. Cholelithiasis. RUQ u/s demonstrated cholelithiasis without cholecystitis Not recommending cholecystectomy at this time. No follow-up is needed. Code Visit Inpatient E&M: 48546 Subs Hosp L1
== END 2017-09-25 12:11 | disposition home or self-care (01) ==
LOC: ED 17:53 → PCU 21:47
PROVIDERS: Admitting Provider Internal Medicine; Emergency Provider Emergency Medicine; Visit Provider Internal Medicine
DX: K80.20 Calculus of gallbladder without cholecystitis without obstruction (principal); R07.89 Other chest pain; I10 Essential (primary) hypertension; E03.9 Hypothyroidism, unspecified; Z79.899 Other long term (current) drug therapy; Z87.891 Personal history of nicotine dependence
CPT/HCPCS: 36415; 71045; 71275; 76705; 78452; 80048; 80053; 80061; 80076; 83690; 83735; 84439; 84443; 84484; 85025; 85379; 85610; 85730; 93005; 93017; 96372; 96374; 96375; 96376; 99218; 99285; A9500; J7030; Q9967; A4216; G0378; J2405